=== PATIENT | male | born 1995 | race African-American/Black ===

== ENCOUNTER 2017-01-25 22:52 | Emergency (ER) | payer SELFPAY ==
[~2017-01-25] VITALS: Ht 165.1 cm; Wt 73.2 kg
[~2017-01-25 22:52] MED LIST: AUGMENTIN875TAB PO; CEPHALEXIN500 M1 PO; DENIES CURRENT MEDS; NO HOME MEDS; ROBITUSSIN AC10 ML OR; SEROQUEL50 MG OR; TYLENOL # 31 TA1 PO
[2017-01-26] MEDS ORDERED: PERCOCET 5/325M1 TAB PO (01:05)
[2017-01-26 01:46] VITALS: BP 128/62
== END 2017-01-26 01:34 | disposition home or self-care (01) | DRG 605 ==
LOC: ED 22:52
DX: S80.212A Abrasion, left knee, initial encounter (principal); S60.012A Contusion of left thumb without damage to nail, initial encounter; S60.312A Abrasion of left thumb, initial encounter; S80.211A Abrasion, right knee, initial encounter; S80.02XA Contusion of left knee, initial encounter; S80.01XA Contusion of right knee, initial encounter; V13.4XXA Pedal cycle driver injured in collision with car, pick-up truck or van in traffic accident, initial encounter; Y93.55 Activity, bike riding; Y92.414 Local residential or business street as the place of occurrence of the external cause

== ENCOUNTER 2017-12-12 16:58 | Emergency (ER) | payer SELFPAY ==
[~2017-12-12] VITALS: Ht 165.1 cm; Wt 80.0 kg
[~2017-12-12 16:58] MED LIST changes: +PERCOCET 5/325M1 TAB PO
[2017-12-12 17:40] LABS: HEMATOCRIT 40.3 % (39.0-50.0); HEMOGLOBIN 13.5 g/dl (14.0-18.0); IMMATURE GRANULOCYTES 0.3 % (0.0-5.0); MEAN CELL VOLUME 95.5 fL CALC (80.0-100.0); MEAN CORPUSCULAR HGB CONC 33.5 g/L CALC (32.0-36.0); NEUT# 8.91 thou/uL (1.82-7.42); RED BLOOD COUNT 4.22 mill/uL (4.70-6.10); RED CELL DISTRI WIDTH 12.2 % (11.5-15.5)
[2017-12-12 17:47] LABS: BILIRUBIN, TOTAL 0.6 mg/dL (0.0-1.4); BUN 17 mg/dL (9-20); BUN/CREATININE RATIO 17 (12-20 (CALC)); CARBON DIOXIDE 24 mmol/l (22-30); CHLORIDE 104 mmol/l (95-108); GFR > 60 ML/MIN (>=60 (CALC)); GFR FOR AFR.AMER. > 60 ML/MIN (>=60 (CALC)); SGOT/AST 25 u/l (17-59); SODIUM 138 mmol/l (137-146); TOTAL PROTEIN 7.1 g/dL (6.3-8.2)
[2017-12-12 17:48] LABS: ALKALINE PHOSPHATASE 55 u/l (38-126); ANION GAP 15 (6-22 (CALC)); POTASSIUM 4.5 mmol/l (3.5-5.1)
[2017-12-12 18:09] LABS: BARBITURATES NEGATIVE (NEGATIVE); COCAINE NEGATIVE (NEGATIVE); METHADONE NEGATIVE (NEGATIVE); OXCYCODONE NEGATIVE (NEGATIVE); TETRAHYDROCANNABIONOL POSITIVE (NEGATIVE); TRICYLIC ANTIDEPRESSANTS NEGATIVE (NEGATIVE)
[2017-12-12 18:47] VITALS: BP 125/77
== END 2017-12-12 18:47 | disposition home or self-care (01) | DRG 392 ==
LOC: ED 16:58
PROVIDERS: Emergency Medicine
DX: R10.32 Left lower quadrant pain (principal); R10.31 Right lower quadrant pain; K59.00 Constipation, unspecified; R11.0 Nausea; F17.200 Nicotine dependence, unspecified, uncomplicated

== ENCOUNTER 2020-12-25 19:31 | Emergency (ER) | payer SELFPAY ==
[~2020-12-25] VITALS: Ht 182.9 cm; Wt 75.0 kg
[2020-12-25 20:26] LABS: HEMOGLOBIN 13.7 g/dl (14.0-18.0); IMMATURE GRANULOCYTES 0.5 % (0.0-5.0); MEAN CELL VOLUME 95.3 fL CALC (80.0-100.0); MEAN CORPUSCULAR HGB 31.9 pG CALC (26.0-32.0); MEAN CORPUSCULAR HGB CONC 33.4 g/dL CAL (32.0-36.0); NEUT# 9.99 thou/uL (1.82-7.42); RED BLOOD COUNT 4.3 mill/uL (4.70-6.10); RED CELL DISTRI WIDTH 11.5 % (11.5-15.5)
[2020-12-25 20:32] LABS: ALBUMIN 4.7 g/dL (3.2-5.0); ALKALINE PHOSPHATASE 69 u/l (38-126); ANION GAP 14 (6-22 (CALC)); BILIRUBIN, TOTAL 0.9 mg/dL (0.0-1.4); BUN 16 mg/dL (9-20); BUN/CREATININE RATIO 19 (12-20 (CALC)); CARBON DIOXIDE 28 mmol/l (22-30); CHLORIDE 102 mmol/l (95-108); CREATININE 0.9 mg/dL (0.7-1.3); GFR > 60 ML/MIN (>=60 (CALC)); GFR FOR AFR.AMER. > 60 ML/MIN (>=60 (CALC)); POTASSIUM 3.5 mmol/l (3.5-5.1); SGOT/AST 28 u/l (17-59); SODIUM 140 mmol/l (137-146); TOTAL PROTEIN 8.6 g/dL (6.3-8.2)
[2020-12-25] MEDS ORDERED: NAPROXEN500 MG PO (21:32)
[2020-12-25] MEDS ORDERED: BACTRIM DS1 TAB PO (21:32)
[2020-12-25] MEDS ORDERED: KEFLEX500 MG PO (21:32)
[2020-12-25 21:41] VITALS: BP 133/72
== END 2020-12-25 22:45 | disposition home or self-care (01) | DRG 603 ==
LOC: ED 19:31
PROVIDERS: Emergency Medicine
DX: L03.116 Cellulitis of left lower limb (principal); L03.115 Cellulitis of right lower limb; F17.200 Nicotine dependence, unspecified, uncomplicated; Z86.16 Personal history of COVID-19

== ENCOUNTER 2021-09-11 21:44 | Emergency (ER) | payer OTHER ==
[2021-09-11] VITALS (7 sets, daily range): BP systolic 108–125; BP diastolic 67–78
[~2021-09-11] VITALS: Ht 182.9 cm; Wt 66.0 kg
[~2021-09-11 21:44] MED LIST changes: +BACTRIM DS1 TAB PO; +KEFLEX500 MG PO; +NAPROXEN500 MG PO
== END 2021-09-11 23:12 | disposition home or self-care (01) | DRG 605 ==
LOC: ED 21:44
DX: S61.411A Laceration without foreign body of right hand, initial encounter (principal); S00.81XA Abrasion of other part of head, initial encounter; S00.83XA Contusion of other part of head, initial encounter; F17.200 Nicotine dependence, unspecified, uncomplicated; W20.8XXA Other cause of strike by thrown, projected or falling object, initial encounter; Y93.K9 Activity, other involving animal care; Y92.79 Other farm location as the place of occurrence of the external cause; Y99.0 Civilian activity done for income or pay; Z86.16 Personal history of COVID-19